=== PATIENT | male | born 1965 | race Caucasian/White ===

== ENCOUNTER → 2017-05-15 | Day surgery (SDC) | payer OTHER ==
[~2017-05-15] MED LIST: ALLO300 PO; BUPIVACAINE HCL PF 0.25% 30 ML VIAL ONE; BUPIVACAINE/EPINEPHRINE 0.25% 50 ML VIAL ONE; COZA100T PO; KETOROLAC TROMETHAMINE 30 MG/ML (IVP) VIAL IV PUSH ONE; LACTATED RINGER'S 1000 ML INJ 1,000 ML ONE; LEVO150T46 PO; MELO7.5T PO; METO50TA PO; MIDAZOLAM HCL 2 MG/2 ML VIAL ONE; MORPHINE SULFATE 4 MG/ML INJ ONE; ONDANSETRON HCL 4 MG/2 ML VIAL IV PUSH ONE; PROPOFOL 200 MG/20 ML AMP IV ONE; ZOLP10TA3 PO; ceFAZolin INJ 1,000 MG VIAL ONE
--- NOTE | 2017-05-15 14:53 | MP ---
cc: MACKENZIE HERNANDEZ M.D. DATE OF SURGERY 05/15/2017 PREOPERATIVE DIAGNOSIS Left distal triceps tendon tear with bony avulsion. POSTOPERATIVE DIAGNOSIS Left distal triceps tendon tear with bony avulsion. PROCEDURE Surgical repair of left distal triceps tendon avulsion, removal of bony avulsion prominence left elbow. SURGEON Dr. Mackenzie Hernandez SAP MOBILITY ARCHITECT BECKY Gerard ANESTHESIA General with local. REVIEW OF SYSTEMS Less than 50 cc TOURNIQUET TIME Zero minutes COMPLICATIONS None IMPLANTS USED Arthrex 3.5 mm Bio PushLock anchor. JUSTIFICATION The patient is a 51-year-old male who injured his left elbow. He has had persistence of the pain, weakness in regards to his condition, and failure of conservative treatment. Clinical exams as well as MRI confirmed the above-named findings. The patient was counseled as to the risks, benefits and alternatives to the above-named proposed surgical procedure. He did wish to proceed with surgery. PROCEDURE IN DETAIL A written consent written consent was obtained. The patient identified by name, taken to the operating room, placed supine and general anesthesia was administered as well as two grams of IV Ancef. The patient was carefully turned to a right lateral decubitus position lateral arm roll was placed. All bony prominences and pressure points were well padded. The left upper extremity was prepped and draped using Isopropyl alcohol, Hibiclens solution and DuraPrep solution. After a time-out was performed, a longitudinal incision was made over the posterior aspect of the left elbow. Exposure of the olecranon and distal triceps was obtained. There was evidence of an avulsion of the distal triceps with a bony prominence in this region. A rongeur was used to remove the bony prominence and also decorticate the remaining portion of the olecranon in preparation for triceps tendon repair. The tendon edges were debrided with a 15 blade scalpel. #2 fiber tape suture was then placed in a horizontal mattress pattern through the torn tendon. A rotor pilot 3.2 mm drill hole was made within the olecranon and the sutures were then placed through the eyelet of an Arthrex 3.5 mm Bio PushLock anchor. The sutures were then tensioned appropriately and the anchor was then inserted into the olecranon for surgical repair of the triceps. The repair was probed and noted to have excellent stability in fixation. The surgical wounds were thoroughly irrigated with sterile saline solution. The subcutaneous layer was then closed with 3-0 Vicryl suture. Skin was closed with Dermabond. Sterile dressing applied. The patient was placed in a well-padded long-arm splint and tolerated the procedure well with no intraoperative complications noted. Deon Maurer, Physician Financial Representative Certified, was present during entire procedure to include patient positioning and the procedure itself. The medical necessity of a physician restaurant assistant manager was indicated in this case due to the complexity of the procedure. He assisted with appropriate manipulation and also retraction of the appropriate structures to allow for appropriate exposure. He assisted with preparation of bone and also mobilization of the triceps tendon. He assisted also with implantation of the internal fixation device for purposes of the triceps tendon repair. MD NORMAN Jones/RAMYA /2:10 PM /2:37 PM
== END | disposition home or self-care (01) ==
LOC: ESDC 11:22
PROVIDERS: ATTEND Orthopaedic Surgery Sports Medicine
DX: S46.312A Strain of muscle, fascia and tendon of triceps, left arm, initial encounter (principal); M25.722 Osteophyte, left elbow
CPT/HCPCS: 01710; 01740; 24120; 24341; C1713; J0690; J1885; J2250; J2270; J2405; J3010; J7120